=== PATIENT | male | born 1985 | race Caucasian/White ===

== ENCOUNTER 2016-11-02 15:16 | Emergency (ER) | payer OTHER ==
[~2016-11-02] VITALS: Ht 165.1 cm; Wt 62.4 kg
[2016-11-02] MEDS ORDERED: ULTRAM50 MG PO (17:07)
[2016-11-02] MEDS ORDERED: FLEXERIL10 MG PO (17:07)
[2016-11-02 17:39] VITALS: BP 130/65
== END 2016-11-02 17:40 | disposition home or self-care (01) ==
LOC: EME 15:16
DX: M54.5 Low back pain (principal); M62.838 Other muscle spasm; M79.604 Pain in right leg; M79.605 Pain in left leg; F17.200 Nicotine dependence, unspecified, uncomplicated
CPT/HCPCS: 99281; 99283

== ENCOUNTER 2016-11-04 20:07 | Emergency (ER) | payer OTHER ==
[~2016-11-04] VITALS: Ht 165.1 cm; Wt 60.6 kg
[~2016-11-04 20:07] MED LIST: FLEXERIL10 MG PO; ULTRAM50 MG PO
[2016-11-04] MEDS ORDERED: VALIUM5 MG PO (21:11)
[2016-11-04 21:20] VITALS: BP 124/81
== END 2016-11-04 21:21 | disposition home or self-care (01) ==
LOC: EME 20:07
DX: M54.40 Lumbago with sciatica, unspecified side (principal); G89.29 Other chronic pain; F17.200 Nicotine dependence, unspecified, uncomplicated
CPT/HCPCS: 99281; 99283

== ENCOUNTER 2017-07-24 21:05 | Emergency (ER) | payer OTHER ==
[~2017-07-24] VITALS: Ht 165.1 cm; Wt 64.1 kg
[~2017-07-24 21:05] MED LIST changes: +DOXYCYCLINE HY100 MG PO; +KEFLEX500 MG PO; +VALIUM5 MG PO
[2017-07-24 21:25] LABS: APPEARANCE CLOUDY ((CLEAR)); BILIRUBIN NEGATIVE; BLOOD SMALL; COLOR YELLOW ((YELLOW)); GLUCOSE (STRIP) NEGATIVE; KETONES NEGATIVE; LEUKOCYTES LARGE; NITRITE POSITIVE; PROTEIN (STRIP) 30; SPECIFIC GRAVITY 1.016 (1.000-1.030)
[2017-07-24 21:50] LABS: BACTERIA 2+ /HPF; EPITHELIAL CELLS 1+ /HPF; MUCUS 1+ /LPF; RED BLOOD CELLS RARE /HPF (0-5); UCUL ADDED? YES; WHITE BLOOD CELLS TNTC /HPF (0-5)
[2017-07-24 23:43] LABS: SOURCE URINE
[2017-07-25] MEDS ORDERED: MOTRIN600 MG PO
[2017-07-25 00:18] VITALS: BP 136/79
[2017-07-26 13:26] LABS: CHLAMYDIA TRACHOMATIS NEGATIVE; NEISSERIA GONORRHOEAE NEGATIVE
== END 2017-07-25 00:20 | disposition home or self-care (01) ==
LOC: EME 21:05
PROVIDERS: Emergency Medicine; Nurse Practitioner Family
DX: N45.1 Epididymitis (principal); N39.0 Urinary tract infection, site not specified; F90.9 Attention-deficit hyperactivity disorder, unspecified type; F17.200 Nicotine dependence, unspecified, uncomplicated
CPT/HCPCS: 76870; 81003; 87077; 87086; 87186; 87491; 87591; 99281; 99284; J0696

== ENCOUNTER 2017-09-10 21:19 | Emergency (ER) | payer OTHER ==
[~2017-09-10] VITALS: Ht 165.1 cm; Wt 62.8 kg
[~2017-09-10 21:19] MED LIST changes: +MOTRIN600 MG PO
[2017-09-10 22:29] VITALS: BP 109/72
== END 2017-09-10 22:30 | disposition home or self-care (01) ==
LOC: EME 21:19
PROC: 0T9B70Z Drainage of Bladder with Drainage Device, Via Natural or Artificial Opening (ICD-10-PCS; principal; 2017-09-10)
DX: T83.018A Breakdown (mechanical) of other urinary catheter, initial encounter (principal); F90.9 Attention-deficit hyperactivity disorder, unspecified type; Q05.9 Spina bifida, unspecified; F17.200 Nicotine dependence, unspecified, uncomplicated
CPT/HCPCS: 99281; 99283